=== PATIENT | female | born 1960 | race Caucasian/White ===

== ENCOUNTER 2016-09-06 09:14 | Emergency (ER) | payer SELFPAY ==
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
[2016-09-06] MEDS ORDERED: ALBUTEROL SULFATE 0.083% NEB 2.5 MG/3 ML AMPUL NEB ONE (10:40)
[2016-09-06 10:58] VITALS: BP 108/60
== END 2016-09-06 10:54 | disposition home or self-care (01) ==
LOC: ER 09:14
DX: S83.91XA Sprain of unspecified site of right knee, initial encounter (principal); W50.0XXA Accidental hit or strike by another person, initial encounter; Y92.832 Beach as the place of occurrence of the external cause; E11.9 Type 2 diabetes mellitus without complications; I10 Essential (primary) hypertension
CPT/HCPCS: 99283

== ENCOUNTER → 2020-03-18 | Outpatient (CLI) | payer SELFPAY ==
--- OUTSIDE RECORDS SUMMARY | 2020-03-19 18:17 | XMS REPORT ---
:1960 [facility] Address [address] [address] Care Team Providers Name Role Phone Unavailable Unavailable Unavailable Allergies, Adverse Reactions, Alerts This patient has no known allergies or adverse reactions. Medications This patient has no known medications. Problems This patient has no known problems. Procedures This patient has no known procedures. Results This patient has no known results. Social History This patient has no known social history. Vital Signs This patient has no known vital signs.
== END ==
LOC: HHS 09:10
PROVIDERS: ATTEND Dermatology
DX: Z12.83 Encounter for screening for malignant neoplasm of skin (principal); D04.39 Carcinoma in situ of skin of other parts of face